=== PATIENT | male | born 1990 | race Caucasian/White ===

== ENCOUNTER 2018-08-23 02:19 | Observation (INO) | payer SELFPAY ==
[2018-08-23] VITALS (10 sets, daily range): BP systolic 132–165; BP diastolic 87–109; PULSE 80–105; RESP 13–20; TEMP 36.4–36.9; O2SAT 92–98; BMI 32.3
--- NOTE | 2018-08-23 02:21 | ED_ITS ---
HPI - General Adult General Chief complaint: Fall Stated complaint: fell downstairs, hip/lower back pain Time Seen by Provider: 08/23/18 02:21 Source: patient Mode of arrival: wheelchair Limitations: no limitations History of Present Illness HPI narrative: 28-year-old otherwise healthy male here for evaluation of lower back pain and bilateral hip pain. Patient states that he was walking up a flight of stairs after getting a little laundry per he tripped and fell backwards. States that he landed at the bottom approximately 10 stairs. Was able to ambulate afterwards but with quite a bit of difficulty. Did not hit his head. No loss of consciousness. Not on anticoagulation. Did drink some alcohol afterwards because of the discomfort. Arrived to the emergency department by private vehicle that had to be helped out of the vehicle because of the discomfort. Related Data Allergies Allergy/AdvReac Type Severity Reaction Status Date / Time No Known Drug Allergies Allergy Verified 08/23/18 03:36 Review of Systems Constitutional Denies fever(s), Denies headache(s) and Denies weakness ENT Ears, Nose, Mouth, and Throat: Denies vertigo, Denies dizziness, Denies headache(s) and Denies disequilibrium Cardiovascular Denies chest pain, Denies palpitations and Denies dyspnea Respiratory Denies cough and Denies dyspnea Gastrointestinal Gastrointestinal: Denies abdominal pain, Denies nausea and Denies vomiting Musculoskeletal Reports back pain, Denies radiating pain into limb and Denies tingling Comments: Bilateral hip pain Integumentary/Breasts Comments: Bruising to the left forearm Neurologic Denies abnormal speech, Denies behavioral changes, Denies vertigo, Denies dizziness, Denies headache(s), Denies radicular pain, Denies convulsions, Denies seizure-like activity, Denies tingling, Denies disequilibrium and Denies weakness Psychiatric Denies behavioral changes Endocrine Denies palpitations Hematologic/Lymphatic Denies easy bleeding and Denies easy bruising Allergic/Immunologic Denies urticaria [facility] Medical History Patient denies medical problems (Acute) Social History Smoking Status: Current every day smoker Social History Smoking Status: Current every day smoker Exam Initial Vital Signs Initial Vital Signs: Vital Signs Pulse Rate 105 H 08/23/18 02:19 Respiratory Rate 20 08/23/18 02:19 Blood Pressure 144/109 H 08/23/18 02:19 Pulse Oximetry 97 08/23/18 02:19 Const General: cooperative, No comfortable (Uncomfortable), well groomed, No acute distress and No ill appearing Orientation: alert, awake and oriented x3 HENMT Head: normal to inspection and normocephalic Nose: external nose normal Face and sinus: normal facial exam Mouth: oral mucosae normal Resp Effort & Inspection: normal respiratory effort Auscultation: clear to auscultation bilaterally Cardio Rate: tachycardic Rhythm: regular rhythm Pulses: radial pulses present GI Inspection: non-distended Palpation: soft, No firm and No tender Back/Spine/Pelvis Cervical Spine: No collar present, No loss of normal cervical lordosis, No cervical muscular tenderness, No pain with cervical ROM, No cervical spasm, No cervical spinal tenderness and No step off deformity Thoracic/Lumbar Spine: No thoracic spinal tenderness and lumbar spinal tendern ess Skin Other: Superficial abrasions to the left forearm. Abrasion to the right arm Neuro General: alert, awake and oriented x3 Cognition: normal cognition Speech: speech normal Motor: muscle tone normal throughout Sensory Exam: no sensory deficits noted Extrem General: normal to inspection and capillary refill normal Other: Full range of motion of major joints of left arm and right arm patient able to flex and extend at the hip the knees and the ankles bilaterally Psych Appearance: grossly normal and well kempt Scores GCS Guilherme coma scale eye opening: Spontaneous Guilherme coma scale verbal response: Orientated Guilherme coma scale motor response: Obey commands Guilhreme coma scale total score: 15 Nexus Score for C-Spine Focal Neurologic deficit present: No Midline spinal tenderness present: No Altered level of conciousness present: No (Not clinically intoxicated) Intoxication present: No Distracting Injury Present: No Nexus Criteria for C-spine: 0 Course Orders Ordered: ED Orders 08/23/18 02:25 XR lumbar spine 2-3V Stat XR pelvis 1-2V Stat 08/23/18 03:24 CT abdomen pelvis w con Stat 08/23/18 03:31 Basic Metabolic Panel Stat Complete Blood Count AUTO DIFF Stat Ethanol (ETOH) Stat 08/23/18 05:33 Consult to Orthopedic Surgery Routine Hydromorphone HCl (Dilaudid) 1 mg IV Q2HR MILLIE Nicotine (Nicoderm) 21 mg TOP NOW ONE Stop: 08/23/18 05:46 Ondansetron HCl (Zofran) 4 mg IV Q4HR PRN PRN Reason: Nausea And Vomiting Discontinued Medications Hydromorphone HCl (Dilaudid) 1 mg IM NOW ONE Stop: 08/23/18 02:26 Last Admin: 08/23/18 02:28 Dose: 1 mg Hydromorphone HCl (Dilaudid) 1 mg IV NOW ONE Stop: 08/23/18 03:25 Last Admin: 08/23/18 03:36 Dose: 1 mg Hydromorphone HCl (Dilaudid) 1 mg IV NOW ONE Stop: 08/23/18 05:27 Last Admin: 08/23/18 05:30 Dose: 1 mg Sodium Chloride (Normal Saline 0.9%) 1,000 mls @ 1,000 mls/hr IV BOLUS ONE Stop: 08/23/18 04:45 Last Infusion: 08/23/18 05:12 Dose: 0 mls/hr Admin: 08/23/18 04:10 Dose: 1,000 mls/hr Ketorolac Tromethamine (Toradol) 30 mg IM NOW ONE Stop: 08/23/18 02:26 Last Admin: 08/23/18 02:29 Dose: 30 mg Vital Signs - 8 hr 08/23/18 02:19 08/23/18 04:07 08/23/18 04:30 Pulse Rate 105 H 97 H 89 Respiratory Rate 20 20 Blood Pressure 144/109 H Blood Pressure [Right Arm] 146/99 H 146/87 H Pulse Oximetry 97 97 96 08/23/18 05:00 08/23/18 05:30 Pulse Rate 80 100 H Respiratory Rate 18 20 Blood Pressure Blood Pressure [Right Arm] 132/88 149/101 H Pulse Oximetry 92 94 Medical Decision Making Lab Data Lab results reviewed: Yes I reviewed the patient's lab results. Result diagrams: 08/23/18 03:31 08/23/18 03:31 Lab Results 08/23/18 08/23/18 Range/Units 03:31 03:31 WBC 12.0 H (4.5-11.0) X10^3/uL RBC 4.42 L (4.5-5.9) X10^6/uL Hgb 15.4 (13.5-17.5) g/dL Hct 43.8 (41-53) % MCV 99.1 (80-100) fL MCH 35.0 H (26-34) PG MCHC 35.3 (30-36) % RDW 12.2 (11.6-14.8) % Plt Count 132 L (150-400) X10^3/uL Neut % (Auto) 85.3 H (50-75) % Lymph % (Auto) 9.0 L (25-40) % [place] % (Auto) 5.0 (3-14) % Eos % (Auto) 0.3 L (2-4) % Baso % (Auto) 0.4 (0-2) % Neut # (Auto) 07775 H (9740-3732) /uL Lymph # (Auto) 1100 (7902-7514) /uL [place] # (Auto) 600 (0-900) /uL Eos # (Auto) 0 (0-450) /uL Baso # (Auto) 0 (0-100) /uL Sodium 140 (137-145) mmol/L Potassium 4.0 (3.4-5.1) mmol/L Chloride 107 (98-107) mmol/L Carbon Dioxide 22 (22-32) mmol/L BUN 11 (9-20) mg/dL Creatinine 0.70 (0.66-1.25) mg/dL Estimated GFR > 60.0 (>60) mL/min BUN/Creatinine Ratio 15.7 (6-22) Glucose 122 H (70-100) mg/dL Calcium 8.8 (8.4-10.2) mg/dL Ethyl Alcohol 110 mg/dL Imaging Data X-ray lumbar series: Radiologist's impression: Read by Radiology Acute anterior compression/teardrop fracture of L2 vertebral body. No conclusive evidence of posterior column her posterior element involvement. Slight retrolisthesis at L2-L3 X-ray pelvis: Radiologist's impression: Read by Renal radiology Unremarkable pelvis and bilateral hips CT abdomen pelvis: Radiologist's impression: Read by real Radiology Acute L2 burst fracture, with multiple fragments displaced anteriorly, and extends into posterior cortex, with mild retropulsion and borderline canal narrowing. Slight kyphotic angulation secondary to this. Mild enlargement of right psoas muscle on adjacent fat stranding consistent with at least a small amount of hemorrhage or edema. No intra peritoneal hemorrhage or solid organ injury. Hepatic steatosis MDM Narrative Medical decision making narrative: This appeared to be a mechanical fall. Patient admitted to drinking alcohol however he was clinically sober. He did not hit his head. No loss of consciousness. No external findings of any trauma. No neck pain. Full range of motion of the neck. I feel that we could hold on head CT and neck CT. Abrasions on bilateral upper extremities before range of motion of the major joints. Held on any x-rays. CT scan and x-rays show an L2 burst fracture. Patient is neurologically intact distal to this. He is unable to stand or move secondary to pain. Was given multiple doses of pain medication here in the emergency department. Discussed the case with Dr. Gore with Orthopedics who will admit the patient for further evaluation treatment. Discussed the admission with the patient. He expressed understanding and agreement. Discharge Plan Departure Patient Disposition: Admitted as Observation Clinical Impression: Abrasion of skin Closed compression fracture of L2 vertebra Qualifiers: Encounter type: initial encounter Qualified Code(s): S32.020A - Wedge compression fracture of second lumbar vertebra, initial encounter for closed fracture Fall Qualifiers: Encounter type: initial encounter Qualified Code(s): W19.XXXA - Unspecified fall, initial encounter Admit Date/Time: 08/23/18 05:39 Admit Provider: Faisal Gore
--- NOTE | 2018-08-23 02:25 | DI.RAD.S_ITS ---
PROCEDURE: XR LUMBAR SPINE 2-3V INDICATIONS: Fall down stairs lower back pain TECHNIQUE: During views of the lumbar spine were acquired. COMPARISON: [facility], CT, CT ABDOMEN PELVIS W CON, 08/23/2018, 3:49. FINDINGS: Bones: There is a fracture identified involving the L2 vertebral body with slight retropulsion of the posterior fragment. This fracture appears to represent an anterior compression fracture with a vertical component through the mid body. No additional fractures are evident. The remainder of the vertebral body heights are well-maintained. Bony alignment throughout the lumbar spine is well maintained. There is mild upward curvature of the lumbar spine on the frontal view. Soft tissues: Overlying bowel gas pattern is normal. No suspicious soft tissue calcifications. IMPRESSION: Complex L2 fracture. Slight retropulsion is present. Note: The preliminary [facility] report and the final report are concordant. Dictated by: Trey Mack M.D. on 08/23/2018 at 7:49 Approved by: Trey Mack M.D. on 08/23/2018 at 7:55
--- NOTE | 2018-08-23 02:25 | DI.RAD.S_ITS ---
PROCEDURE: XR PELVIS 1-2V INDICATIONS: Fall down stairs bilateral hip pain TECHNIQUE: 1 view(s) of the pelvis acquired. COMPARISON: [facility], CT, CT ABDOMEN PELVIS W CON, 08/23/2018, 3:49. FINDINGS: Bones: No displaced fractures or dislocations. No suspicious bony lesions. There may be mild degenerative changes of the bilateral hips. Soft tissues: Visualized bowel gas pattern is normal. No suspicious soft tissue calcifications. IMPRESSION: No displaced pelvic fractures are evident. Note: The preliminary [facility] report and the final report are concordant. Dictated by: Trey Mack M.D. on 08/23/2018 at 7:56 Approved by: Trey Mack M.D. on 08/23/2018 at 7:57
[2018-08-23] MEDS: HYDROMORPHONE 1 MG INJ IM (02:28)
[2018-08-23] MEDS: KETOROLAC 60 MG/2 ML VIAL 30 MG IM (02:29)
--- NOTE | 2018-08-23 03:24 | DI.CT.S_ITS ---
PROCEDURE: CT ABDOMEN PELVIS W CON INDICATIONS: Back pain after fall TECHNIQUE: After the administration of oral and intravenous contrast, 5 mm thick sections acquired from the diaphragms to the symphysis. 5 mm thick coronal and sagittal reformats were performed. For radiation dose reduction, the following was used: automated exposure control, adjustment of mA and/or kV according to patient size. COMPARISON: None. FINDINGS: Image quality: Excellent. ABDOMEN: Lung bases: Lung bases are clear. Heart size is normal. Solid organs: Liver is normal in size and is noted to be diffusely hypodense when compared to the spleen. Gallbladder is normal in size. Biliary system is non-dilated. Pancreas enhances normally. Spleen is normal in size and enhancement. No adrenal nodules. Kidneys are normal in size and enhancement, without hydronephrosis. Peritoneum and bowel: Stomach, small bowel, and colon loops are normal in caliber and wall thickness. No free fluid or air. No loculated fluid collections are evident. The appendix is well-visualized and normal. Incidental note is made of enlargement of the right iliopsoas muscle with surrounding soft tissue edema. No intramuscular fluid collection is appreciated. Nodes and vessels: No retroperitoneal or mesenteric adenopathy. Aorta and inferior vena cava are normal in caliber. Bones: There is a complex fracture identified involving the L2 vertebral body with anterior wedging and approximately 40% anterior vertical height loss. Mild comminution involving the anterior aspect of the vertebral body is present. There is a vertical component extending through the anterior to mid aspect of the vertebral body. There is slight retropulsion by approximately 1-2 mm on the posterior superior endplate. No fracture lines are seen extending into the pedicles or other posterior elements. No additional fractures are identified. PELVIS: Genitourinary: Bladder wall thickness is normal. The prostate is not enlarged. Miscellaneous: No inguinal hernias or adenopathy. No free fluid or loculated fluid collection is appreciated. Bones: No suspicious bony lesions. No acute pelvic fractures are evident. IMPRESSION: 1. Complex fracture of the L2 vertebral body without involvement of the posterior elements. There is minimal retropulsion. 2. Enlarged right psoas muscle probably is reactive to the L2 fracture, suggesting intramuscular hematoma/tearing. 3. Hepatic steatosis. 4. No evidence of solid organ laceration or contusion of the abdomen. Note: The preliminary [facility] report and the final report are concordant. Dictated by: Trey Mack M.D. on 08/23/2018 at 8:15 Approved by: Trey Mack M.D. on 08/23/2018 at 8:19
[2018-08-23] MEDS: HYDROMORPHONE 1 MG INJ IV ×4 (03:36→08:36)
[2018-08-23 03:42] LABS: Add Manual Diff / Slide Review NO; Basophils Absolute Auto 0 /uL (0-100); Basophils Percent Auto 0.4 % (0-2); Eosinophils Absolute Auto 0 /uL (0-450); Eosinophils Percent Auto 0.3 % (2-4); Hematocrit 43.8 % (41-53); Hemoglobin 15.4 g/dL (13.5-17.5); Lymphocytes Absolute Auto 1100 /uL (1100-4500); Mean Corpuscular HGB Conc 35.3 % (30-36); Mean Corpuscular Volume 99.1 fL (80-100); Monocytes Absolute Auto 600 /uL (0-900); Neutrophils Absolute Auto 10300 /uL (1500-7000); Neutrophils Percent Auto 85.3 % (50-75); Platelet Count 132 X10^3/uL (150-400); Red Blood Cell Count 4.42 X10^6/uL (4.5-5.9); Red Cell Distribution Width 12.2 % (11.6-14.8)
[2018-08-23 03:48] LABS: BUN Creatinine Ratio 15.7 (6-22); Blood Urea Nitrogen 11 mg/dL (9-20); Calcium 8.8 mg/dL (8.4-10.2); Carbon Dioxide 22 mmol/L (22-32); Chloride 107 mmol/L (98-107); Estimated Glomerular Filt Rate > 60.0 mL/min (>60); Ethanol (ETOH) 110 mg/dL; Glucose 122 mg/dL (70-100); HEMOLYSIS < 15 (0-50); Sodium 140 mmol/L (137-145)
[2018-08-23] MEDS: SODIUM CHLORIDE 0.9% 1,000 ML 1000 ML IV (04:10)
--- NOTE | 2018-08-23 06:00 | DI.MRI.S_ITS ---
PROCEDURE: MR LUMBAR SPINE WO CON INDICATIONS: L2 is fracture rule out posterior ligament injury TECHNIQUE: Noncontrast sagittal T1 spin echo and T2 fast echo, sagittal STIR, axial T1 and T2 fast spin echo through the lumbar spine. In cases with scoliosis, additional coronal T2 fast spin echo may be performed. COMPARISON: None. FINDINGS: Image quality: Excellent. Spinal Cord: Conus medullaris terminates at the L1 level. Visualized cord demonstrates normal signal and size. Paraspinous Soft Tissues: No paravertebral masses. Mild edema involving the bilateral iliopsoas muscles is evident, suggesting intramuscular trauma. No loculated or drainable fluid collections are evident. Bones: There is a vertically oriented fracture identified involving the anterior margin of the L2 vertebral body with mild comminution. Mild retropulsion is evident along the posterior superior endplate by approximately 3 mm. The remainder of the vertebral body heights are well-maintained. No additional fractures are identified. No suspicious osseous lesions are evident. No prominent disc protrusions or extrusions are evident. There is a small diffuse disc bulge with an associated annular fissure at L5-S1. There is mild central canal stenosis at the L2 level related to mild retropulsion of the fracture fragments of the posterior L2 vertebral body in combination with epidural lipomatosis and a congenitally small canal. No neural foraminal narrowing is evident at this level. Otherwise, the central canal is widely patent. There is mild to moderate bilateral neural foraminal narrowing at the level of L4-5 and L5-S1, largely related to mild diffuse disc bulge and facet arthrosis. IMPRESSION: 1. Comminuted fracture involving the L2 vertebral body with mild posterior retropulsion and associated mild central canal stenosis as described. 2. No abnormal signal of the cord. 3. No additional fractures. 4. No disc protrusions or extrusions. 5. Mild to moderate neural foraminal narrowing as described. 6. Small central annular fissure at L5-S1 with an associated diffuse disc bulge is likely chronic. 7. Intramuscular edema of the bilateral psoas muscles is suggestive of muscle strain and/partial tearing. Dictated by: Trey Mack M.D. on 08/23/2018 at 10:52 Approved by: Trey Mack M.D. on 08/23/2018 at 11:01
[2018-08-23] MEDS: NICOTINE 21 MG PATCH TOP ×2 (06:22→16:06)
[2018-08-23] MEDS: SODIUM CHLORIDE 0.9% 1,000 ML 125 ML IV (06:31)
--- NOTE | 2018-08-23 06:52 | PC.NURSE ---
Admitted to room 225, diagnosed with L2 fractured, very restless & moving all over his bed. Rated pain level 10/10, medicated with 1 mg. IVP Dilaudid. Ice pack applied to his lower back. Oriented to his room showed how to used his call light, informed Pt. he will be NPO until Ortho MD will see him this morning. Will report to day RN.
--- NOTE | 2018-08-23 07:07 | PC.NURSE ---
Pt. reports the pain med. you gave me is not working. Dr. Groe notified via answering service awaiting call back.
--- NOTE | 2018-08-23 07:25 | PC.NURSE ---
Dr. Gore called back no new order received & will see pt. this morning.
--- NOTE | 2018-08-23 09:44 | PM.HP.1 ---
History of Present Illness Date Patient Seen: 08/23/18 Time Patient Seen: 09:30 Chief complaint: fell downstairs, hip/lower back pain Narrative: The patient is a 28-year-old man with a history of anxiety but otherwise generally healthy. He was attempting to take laundry up stairs when his flip flop caught on the stair and he fell falling back down the stairs. He had intense back pain and was taken to [facility] Emergency Room where a CT scan of the chest and abdomen revealed an L2 burst fracture. No other injuries have been found on his workup. Patient History Medical History (Updated 08/23/18 @ 09:46 by Faisal Gore MD) Anxiety (Acute) Patient denies medical problems (Acute) Social History household members: significant other and family Smoking Status: Current every day smoker Family & Social History Social History: household members significant other,family Prior Living Arrangements Apartment/Condo Safety & Behavioral: Feels Safe in Current Yes Environment Been Physically Hurt or No Threatened By a Person Suicidal Ideation Description None Suicide Plan Description No Plan Tobacco & Substance use: Smoking Status Current every day smoker alcohol intake frequency 0-2 drinks per day Substance Use Type marijuana Meds Home Medications Medication Instructions Recorded Confirmed Type No Known Home Medications 08/23/18 08/23/18 History Allergies Allergy/AdvReac Type Severity Reaction Status Date / Time No Known Drug Allergies Allergy Verified 08/23/18 03:36 Review of Systems Review of Systems Review of systems is positive for the chronic use of marijuana to treat his anxiety. He is also a smoker. He denies any other recent symptoms. All systems reviewed & are unremarkable except as noted in HPI and below Exam Vital Signs (past 8 hours): - 08/23/18 02:19 08/23/18 04:07 08/23/18 04:30 Temperature Pulse Rate 105 H 97 H 89 Respiratory Rate 20 20 Blood Pressure 144/109 H Blood Pressure [Right Arm] 146/99 H 146/87 H Pulse Oximetry 97 97 96 08/23/18 05:00 08/23/18 05:30 08/23/18 05:48 Temperature 98 F Pulse Rate 80 100 H 97 H Respiratory Rate 18 20 17 Blood Pressure 156/99 H Blood Pressure [Right Arm] 132/88 149/101 H Pulse Oximetry 92 94 96 Oxygen Delivery Method Room Air Narrative Exam Narrative: Physical examination he is a moderately overweight young man lying in his hospital bed clearly in significant discomfort. He is writhing in discomfort. HEENT examination is normocephalic atraumatic. Neck is nontender. Upper spine is nontender. He is tender in the lower spine with no palpable step-offs. Skeletal survey is nontender anywhere else including the entirety of the appendicular skeleton and pelvis. Chest is notable for widespread wheezes. Cardiac exam is regular rate and rhythm. Abdomen is soft mildly distended hypoactive bowel sounds but no tenderness. The patient has been able to spontaneously urinate in a controlled fashion since arrival at the hospital so rectal examination is deferred Objective Labs Result Diagrams: 08/23/18 03:31 08/23/18 03:31 Labs: Laboratory Results - last 24 hr 08/23/18 08/23/18 03:31 03:31 WBC 12.0 H RBC 4.42 L Hgb 15.4 Hct 43.8 MCV 99.1 MCH 35.0 H MCHC 35.3 RDW 12.2 Plt Count 132 L Neut % (Auto) 85.3 H Lymph % (Auto) 9.0 L [place] % (Auto) 5.0 Eos % (Auto) 0.3 L Baso % (Auto) 0.4 Neut # (Auto) 03076 H Lymph # (Auto) 1100 [place] # (Auto) 600 Eos # (Auto) 0 Baso # (Auto) 0 Sodium 140 Potassium 4.0 Chloride 107 Carbon Dioxide 22 BUN 11 Creatinine 0.70 Estimated GFR > 60.0 BUN/Creatinine Ratio 15.7 Glucose 122 H Calcium 8.8 Ethyl Alcohol 110 Assessment & Plan Assessment & Plan narrative: The patient has an L2 burst fracture with no neurologic deficit currently. He is having extreme pain control difficulty. I believe this is partially compounded by his baseline anxiety disorder. He will be maintained on bedrest with log rolls only for the time being. An MRI will be obtained to evaluate for posterior ligamentous injury. If that is present he will undergo surgical fixation by 1 of my spine surgery colleagues. If the MRI shows his posterior ligament structures are intact he will be treated with a TLSO. We will initiate pain control with acetaminophen, oxycodone and Flexeril for muscle spasms. Intravenous morphine will be available for breakthrough pain. In addition we will give him as needed Ativan for anxiety. At this juncture he will be allowed to have a diet as tolerated, as any surgery is not contemplated for today. DVT prophylaxis will be with sequential compression devices. Time Spent With Patient Time with patient: 15-24 minutes Quality VTE Deep Vein Thrombosis/Pulmonary Embolism Present on Admission: No
[2018-08-23] MEDS: OXYCODONE IR 10 MG TABLET PO ×2 (09:53→14:09)
[2018-08-23] MEDS: ACETAMINOPHEN 325 MG TABLET 975 MG PO ×3 (09:53→20:36)
[2018-08-23] MEDS: LORazepam 0.5 MG TABLET PO (09:53)
[2018-08-23] MEDS: CYCLOBENZAPRINE 10 MG TABLET PO ×2 (09:53→18:01)
--- NOTE | 2018-08-23 10:08 | CM.DANOTE ---
DCP:Case received, EMR reviewed and met with patient. Introduced self and role. Was able to obtain some information from patient regarding his history. DCP template assessment completed with information currently available. Patient is a 28 year old male who admitted early this morning to the care of the hospitalist team. PCP: none Payer: No insurance. Patient came to the hospital via family vehicle secondary to back pain due to a ground level fall. He had been doing laundry, tripped and fell backwards on the stairs. He had been able to get up, but had significant back pain. Patient holds diagnosis of L-2 burst fracture. Plan is for patient to have an MRI today to see if he will need surgery. Patient stated that he had some alcohol secondary to fall for pain. He has history of anxiety, in which he uses marijuana to help with this. Met briefly with patient. He was restless and in pain. Nurse, Marifer, had just given him some pain medication. Was unable to engage in a lengthy conversation with patient secondary to restlessness and pain, but confirmed that he lives alone. No other family present in room, but notes indicate he has family, significant other, none listed. He has no health insurance, as well as no primary care provider. Sent a note to admission change group regarding insurance situation. P: DCP to continue to follow. At this time, patient is on bed rest. Anticipate that patient will be here for another couple of days, but unclear if he will have surgery at this time. He may also eventually work with physical therapy when he is able. Addie Woody RN/Needle Molder
[2018-08-23] MEDS: MORPHINE 2 MG/ML INJ IV ×4 (10:37→20:39)
[2018-08-23] MEDS: LORazepam 2 MG/ML INJ 0.5 MG IV ×2 (10:37→17:29)
[2018-08-23] MEDS: LACTATED RINGERS 1,000 ML 125 ML IV (10:43)
--- NOTE | 2018-08-23 12:32 | RT ---
Fair IS effort; pt is s/p fall down stairs, has intense spasm-like back pain (comes in waves). Currently refused to cough due to back pain. Uses IS 10x with fair effort. Nurse Maki Vaz aware of back pain and fair I.S. and cough efforts.
--- NOTE | 2018-08-23 16:39 | RT ---
Reviewed and conducted I.S. therapy with Efren again. His LBP seems to be better controlled. Sebastián actually coughed on command (albeit weak and ineffective) Lung sounds remain coarse with musical rhonchi and wheezes. Importance of IS reinforced and I told pt he has the perfect storm (hvy smkr & pain with any deep breath and cough) to develop pulm complications if he is not aggressive performing pulmonary toilet. SO Romelia in room also to hear discussion. Pt understands and verbalizes.
[2018-08-23] MEDS: DOCUSATE 100 MG CAPSULE PO (20:36)
[2018-08-24] MEDS: OXYCODONE IR 10 MG TABLET PO ×3 (02:06→12:44)
[2018-08-24 04:50] VITALS: BP 159/104; PULSE 85; RESP 17; TEMP 37.1; O2SAT 97
[2018-08-24] MEDS: MORPHINE 2 MG/ML INJ IV ×2 (04:52→09:33)
--- NOTE | 2018-08-24 05:06 | PC.NURSE ---
Pt A and O x 4, VSS, able to sleep but rates pain 8-9/10. Good relief from 10 mg oxycodone po, alternating with 2 mg MS IVP.
[2018-08-24 05:28] LABS: Hematocrit 40.8 % (41-53); Hemoglobin 14.5 g/dL (13.5-17.5); Mean Corpuscular HGB Conc 35.6 % (30-36); Mean Corpuscular Volume 98.3 fL (80-100); Platelet Count 100 X10^3/uL (150-400); Red Blood Cell Count 4.15 X10^6/uL (4.5-5.9); Red Cell Distribution Width 12.4 % (11.6-14.8)
[2018-08-24] MEDS: CYCLOBENZAPRINE 10 MG TABLET PO (07:09)
[2018-08-24 08:00] VITALS: BP 153/105; PULSE 90; RESP 16; TEMP 37.1; O2SAT 95
--- NOTE | 2018-08-24 08:31 | CM.DPC ---
Addendum entered by Leia Kim LPN 08/24/18 13:39: Spoke again with JULY Portillo. He noted that he had returned to put in a d/c order for pt. He reported that pt had been up, done very well with the TLSO, was able to do stairs and was very eager for d/c. TRE Caicedo notes that pt went home with a friend at 1302. Per JULY Portillo he is expected to followup with the ortho clinic in a week or so. ACG did see pt to offer help with [facility] but he declined her assist, stating he preferred to follow up later after he was home. Original Note: DCP: continued: Case received and discussed with ortho JULY Portillo. Pt with L2 burst fracture: TLSO is ordered. PT and OT will work with pt. JULY Portillo reports that pt does live in a second floor apt but that he has friends who can assist him. Will be following up re this and assisting prn with the d/c needs. Pt with no insurance. Review of COL NOTES show that Admission counselor is planning to see pt today to assess for eligibility for [place] [employer] [facility] [employer] and give [facility] application info. P: discuss in Team Rounds and follow accordingly.
--- NOTE | 2018-08-24 08:43 | PM.PN.1 ---
Subjective Date Patient Seen: 08/24/18 Time Patient Seen: 08:43 Interval history: Hospital day 2 with L2 vertebrae burst fracture after fall down stairs. Patient has been on bed rest and pain management. Patient does have anxiety disorder which is being treated with Ativan. He usually treat anxiety at home with marijuana. He has been receiving oxycodone, morphine IV push and Flexeril. He did have a lumbar spine MRI done yesterday which noted L2 comminuted fracture with mild posterior retropulsion and mild central stenosis. He has had TLSO brace ordered but this has not been fitted. He is to begin physical therapy once the TLSO brace is fitted and should be up only with brace on. He denies any leg symptoms. Patient is unemployed and has no insurance and lives alone in a 2nd story apartment. He states he does have some friends and family in the area that would help him. Exam Vital Signs (past 8 hours): - 08/24/18 04:50 Temperature 98.8 F Pulse Rate 85 Respiratory Rate 17 Blood Pressure 159/104 H Pulse Oximetry 97 Oxygen Delivery Method Room Air Oxygen Flow Rate 0 Narrative Exam Narrative: Alert, oriented in no acute distress lying in bed. Legs. No calf pain or swelling. Pulses symmetrical. Good sensation to touch to lower legs. Good strength on foot dorsiflexion plantar flexion. Objective Labs Result Diagrams: 08/24/18 04:55 08/23/18 03:31 Labs: Laboratory Results - last 24 hr 08/24/18 04:55 WBC 7.0 RBC 4.15 L Hgb 14.5 Hct 40.8 L MCV 98.3 MCH 35.0 H MCHC 35.6 RDW 12.4 Plt Count 100 L Assessment & Plan Assessment & Plan narrative: Plan: Patient will be fitted for TLSO brace today. He will then begin PT/OT with brace on and should be up out of bed only with brace on. Will observe for pain management. Will plan to observe patient today for pain control and function and plan discharge home next 1-2 days if stable once the care management has worked with him. Quality VTE Deep Vein Thrombosis/Pulmonary Embolism Present on Admission: No
[2018-08-24] MEDS: NICOTINE 21 MG PATCH TOP (09:32)
[2018-08-24] MEDS: ACETAMINOPHEN 325 MG TABLET 975 MG PO (09:32)
[2018-08-24] MEDS: SODIUM CHLORIDE 0.9% FLUSH 10 ML IV (09:33)
[2018-08-24] MEDS: DOCUSATE 100 MG CAPSULE PO (09:33)
--- NOTE | 2018-08-24 10:11 | OT.IP.EVAL ---
Past Medical History (Last Updated 08/23/18 @ 09:46 by Faisal Gore MD) Anxiety (Acute) Patient denies medical problems (Acute) Occupational Therapy Inpatient Evaluation/Re-Eval M1 PT/OT-IP Prior Functional Status Start: 08/24/18 15:04 Freq: NEEDED Status: Active Protocol: Document 08/24/18 10:11 HAIDER (Rec: 08/24/18 15:18 [facility] [id number]) Medical Review Prior Functional Status Medical History Reviewed Yes Diet/Fluid Consistency Regular Communication WNL Mobility and Gait Pt states he is independent without AD, denies any other falls than this one on the stairs. Activities of Daily Living and IADL's Pt states he is independent with all self care, IADLS and cares for his 3 children ages 7, 6, 4 yrs. He owns a truck but prefers to walk due to high cost of gas. Prior Functional Level (Other details) Pt unemployed at present. Social History Household Members children Living Arrangements Apartment/Condo Number of Floors (Floors) One Floor Number of Stairs To Enter/Railing? 15 YAAKOV with bilat rails Home Environment High Toilet Tub/Shower Employment Status Unemployed Additional Social History Comment Pt has supportive neighbors who can assist with child welfare worker and IADLS PRN. Pt states he can borrow FWW and shower seat from neighbor. M2 OT-IP Current Condition Start: 08/24/18 15:04 Freq: Status: Active Protocol: Document 08/24/18 10:11 HAIDER (Rec: 08/24/18 15:18 [facility] [id number]) Occupational Therapy Current Condition Current Condition Evaluation Date 08/24/18 Treatment Diagnosis decr'd self care, functional mobility s/p L2 burst fx after fall on stairs Diagnosis Onset Date 08/23/18 Post Operative Precautions Other Precautions TLSO brace on when up M3 OT- IP Subjective and Pain Start: 08/24/18 15:04 Freq: Status: Active Protocol: Document 08/24/18 10:11 PJTatianna (Rec: 08/24/18 15:18 [facility] [id number]) OT- Subjective Occupational Therapy Visit Type Type Initial Evaluation Visit Start Time 09:29 Visit Stop Time 10:11 Total Visit Minutes 42 Occupational Therapy Visit Comments Patient Comments I just want to go home. Patient/Caregiver Goals To return to being independent with all daily tasks OT Pain Assessment Pain When Pain Assessed After Treatment Pain Present Pain Present Pain Reported Location Lower Back Intensity 4 Scale Used pain improved from 5 with mobility out of bed Description Aching Acute M4 OT- IP ADL's Start: 08/24/18 15:04 Freq: Status: Active Protocol: Document 08/24/18 10:11 PJM (Rec: 08/24/18 15:18 PJM [id number]) OT JUH-Rrsi-Rshttsd General Evaluation Self-Feeding Ability Independent OT ADL-Grooming General Evaluation Grooming Ability Independent Areas Needing Assistance Combing/Brushing Hair Face Washing Comments OT Grooming Comments provided education re: body mechanics OT ADL-Oral Care General Eval Oral Care Ability Independent Areas of Assistance Brushing Teeth Devices Oral Care Devices Toothbrush Comments Oral Care Comments provided education re: body mechanics OT ADL-Dressing General Eval Upper Body Dressing Ability Independent Lower Body Dressing Ability Standby Assistance Assistive Devices Dressing Assistive Devices Aluminum Boat Assembly Supervisor Comments OT Dressing Comments Provided education re: lower body dressing with redrying machine operator and body mechanics for lumbar spine precautions. Pt states his children can assist with socks and he wears slip on shoes. He declines sock aid. Aluminum Boat Assembly Supervisor provided. OT ADL-Toileting General Evaluation Toileting Ability Independent Comments OT Toileting Comments provided education re: body mechanics OT ADL-Bathing Devices Bathing Equipment Long Handled Sponge or [place] Shower Chair without Arms Comments OT Bathing Comments Pt declines to shower here, long bath sponge provided, provided education re: body mechanics. He will borrow shower chair from neighbor.He will have friend assist with donning and doffing brace once seated on shower chair. M5 OT- IP IADL's Start: 08/24/18 15:04 Freq: Status: Active Protocol: Document 08/24/18 10:11 PJTatianna (Rec: 08/24/18 15:18 PJM [id number]) OT-Instrumental Activities of Daily Living Deficits IADL Deficits Identified Deficits Home Safety Awareness Awareness of Need for Assistance at Home Good Awareness Ability to Problem Solve Emergency Able to Problem Solve Situations Medication Management Medication Management No Deficits Identified Money Management Money Management No Deficits Identified Meal Preparation Meal Preparation Caregiver Provides Assist Meal Preparation Comments neighbors, friends to linh PRN Manager Commission Manager Commission Caregiver Provides Assist Manager Commission Comments neighbors, friends to linh PRN Driving Driving Caregiver Provides Assist Driving Comments neighbors, friends to linh PRN M6 OT- IP Functional Cognition Start: 08/24/18 15:04 Freq: Status: Active Protocol: Document 08/24/18 10:11 HAIDER (Rec: 08/24/18 15:18 [facility] [id number]) Cognitive Factors Limiting Selfcare Function Cognitive Ability Level of Alertness Alert Patient Orientation Name Age Birthday Month Date Year Day of Week Place Situation Attention Span Ability Capable of Focused Attention Capable of Sustained Attention Ability to Follow Commands Able to Follow One Step Commands Able to Follow Multi-Step Commands Memory Description No Deficits Noted Safety Awareness No Deficits Noted Problem Solving Ability No deficits Noted Cognitive Comments Cognitive Assessment Comments Pt verbalizes and demonstrates understanding of lumbar spine precautions and written instructions provided. OT- Vision and Hearing OT- Hearing Assessment OT- Hearing Assessment WFL OT- Vision Assessment Visual Acuity WFL M7 OT- IP Mobility and Balance Start: 08/24/18 15:04 Freq: Status: Active Protocol: Document 08/24/18 10:11 HAIDER (Rec: 08/24/18 15:18 [facility] [id number]) OT- Bed Mobility Assessment Rolling Type of Rolling Roll to Right Level of Assistance Independent OT-Transfer Assessment Sit to and From Stand Sit to and from Stand Independent Transfers Transfer Ability Independent Technique Transfer Destination Chair Toilet Transfer Technique Stand Step Pivot Devices Transfer Assistive Devices Gait Belt Front Wheeled Walker OT- Gait Assessment Gait Gait Assistance Required: Independent Distance (Feet) 200 Assistive Devices Assistive Device Gait Belt Front Wheeled Walker OT- Balance Assessment Sitting Balance and Reactions Static Sitting Balance Ability Good Dynamic Sitting Balance Ability Good Standing Balance and Reactions Static Standing Balance Ability Good Dynamic Standing Balance Ability Good M8 OT- IP Objective Assessments Start: 08/24/18 15:04 Freq: Status: Active Protocol: Document 08/24/18 10:11 HAIDER (Rec: 08/24/18 15:18 [facility] [id number]) OT Gross Range of Motion Upper Extremity Range of Motion Assessment Within Functional Limits OT Strength Upper Extremity Strength Assessment Within Functional Limits OT- Coordination Assessment Comments Coordination Comments BUE WNL OT-Muscle Tone Assessment Muscle Tone WNL Yes OT Sensation Assessment Comments Summary Comments BUE WNL Edema Edema Absent M9 OT- IP Assessment and Plan Start: 08/24/18 15:04 Freq: Status: Active Protocol: Document 08/24/18 10:11 HAIDER (Rec: 08/24/18 15:18 PJM [id number]) OT Summary Assessment and Plan Potential Rehabilitation Potential Excellent Analytic Complexity at Evaluation Low Summary OT Impairments Pain Progress Towards Goals Safe For Discharge Assessment Summary Low complexity OT assessment completed on this 28 yr old pt with L2 burst fx after fall down stairs now in new TLSO brace. All OT education completed in one visit re: lumbar spine precautions and adapted ADL techniques as described above. Pt plans to d/c home today with assist from friends/neighbors PRN. Frequency of Treatment Frequency Of Treatment Discharge Discharge Recommendations OT Discharge Recommendations Home with Assistance Home Equipment Needs redrying machine operator and long bath sponge provided, pt will borrow shower seat and FWW
--- NOTE | 2018-08-24 10:30 | PT.IIE ---
Medical History (Last Updated 08/23/18 @ 09:46 by Faisal Gore MD) Anxiety (Acute) Patient denies medical problems (Acute) Physical Therapy Inpatient Evaluation/Re-Eval M1 PT/OT-IP Prior Functional Status Start: 08/24/18 08:29 Freq: NEEDED Status: Discharge Protocol: Document 08/24/18 10:30 RS (Rec: 08/24/18 14:30 RS [id number]) Medical Review Prior Functional Status Medical History Reviewed Yes Diet/Fluid Consistency Regular Communication no known deficits Mobility and Gait ind without AD, denies any other falls than this one on the stairs Activities of Daily Living and IADL's denies needing any assist for self-care Social History Household Members children Living Arrangements Apartment/Condo Number of Floors (Floors) One Floor Number of Stairs To Enter/Railing? 14 YAAKOV with bilat rails Home Environment High Toilet Employment Status Unemployed Additional Social History Comment Lives with 3 children who are currently being cared for by a neighbor/friend (who seems to be quite close to the family, kids call her mom), has another neighbor who can provide any level of assistance as needed M2 PT-IP Current Condition Start: 08/24/18 08:29 Freq: NEEDED Status: Discharge Protocol: Document 08/24/18 10:30 RS (Rec: 08/24/18 14:30 RS [id number]) Physical Therapy Current Condition Current Condition Evaluation Date 08/24/18 Treatment Diagnosis L2 burst fracture Onset Date 08/23/18 Precautions Lumbar Precautions Log Roll No Twisting Limit Bending Brace TLSO on at all times when OOB M3 PT-IP Subjective Start: 08/24/18 08:29 Freq: NEEDED Status: Discharge Protocol: Document 08/24/18 10:30 RS (Rec: 08/24/18 14:30 RS [id number]) Subjective Physical Therapy Visit Type Type Initial Evaluation Visit Start Time 09:00 Visit Stop Time 10:30 Total Visit Minutes 90 Physical Therapy Visit Comments Patient Comments Pt reports he's ready to go home today and that he has tons of support at home. Patient Goals go home today Therapy Pain Assessment Pain When Pain Assessed During Mobility Pain Present Pain Present Pain Reported M4 PT-IP Mobility and Gait Start: 08/24/18 08:29 Freq: NEEDED Status: Discharge Protocol: Document 08/24/18 10:30 RS (Rec: 08/24/18 14:30 RS [id number]) PT-Bed Mobility Assessment Rolling Type of Rolling Log Rolling Level of Assist Independent Supine to Sit Supine to Sit Independent Scooting Scooting to Edge of Bed Independent PT-Transfer Assessment Sit to and From Stand Sit to and from Stand Independent Equipment Transfer Assistive Device Front Wheeled Walker Orthotic/Prosthetic Devices or Brace: Yes Transfers Transfer Destination Bed Chair Toilet Transfer Technique walked Transfer Ability Level of Assist Independent Comments Mobility Comments Pt is slow with bed mobility but able to complete without additional physical assist. Pt demo's good log rolling technique. Pt able to tolerate TLSO donning in sitting, so this technique was encouraged for home instead of donning in supine. Pt able to then perform sit<>stand with FWW from various surfaces at a mod ind level. Gait Assessment Gait Gait Assistance Required: Independent Distance (Feet) 200 Assistive Devices Assistive Device Front Wheeled Walker Orthotic/Prosthetic Devices or Brace: Yes Gait Deviations General Gait Pattern Within Normal Limits Comments Gait Comments Pt BLE initially looking a little weak but gait quality looked better and better the longer he was up moving and once the FWW was elevated slightly. Pt reports feeling better in standing than any other position. Stair Climbing Assessment Evaluation Level of Assist On Stairs Standby Assistance Devices Stair Climbing Assistive Devices Left Railing Right Railing Technique/Endurance Stair Climbing Direction Ascend and Descend Stair Climbing Technique Step Over Step Step to Step Number of Steps Climbed 15 Query Text: Stair Climbing Set # Repetitions (reps) 1 Comments Stair Climbing Comments SBA required to manage FWW while pt uses bilat rails. PT-Balance Assessment Sitting Balance and Reactions Static Sitting Balance Ability Normal Dynamic Sitting Balance Ability Good Standing Balance and Reactions Static Standing Balance Ability Good Dynamic Standing Balance Ability Good Device Used FWW and TLSO M5 PT-IP Objective Assessments Start: 08/24/18 08:29 Freq: NEEDED Status: Discharge Protocol: Document 08/24/18 10:30 RS (Rec: 08/24/18 14:30 RS [id number]) Orientation Orientation/Cognition Level of Alertness Alert Orientation Name Age Birthday Month Date Year Day of Week Place Situation Language Function Ability No Deficits Noted Safety Awareness Understands Safety Issues Memory Description No Deficits Noted Gross Range of Motion Upper Extremity ROM Assessment Within Functional Limits Lower Extremity ROM Assessment Within Functional Limits Strength Comments Strength Comments strength not formally tested, from a functional standpoint BLE are estimated to be ~4+/5 M6 PT-IP Treatment Start: 08/24/18 08:29 Freq: NEEDED Status: Discharge Protocol: Document 08/24/18 10:30 RS (Rec: 08/24/18 14:30 RS [id number]) Physical Therapy Treatment Education Education Provided Safety Brace Education [place] Patient Equipment Issued Equipment Type and Company TLSO from [employer] as ordered by ortho M7 PT-IP Assessment and Plan Start: 08/24/18 08:29 Freq: NEEDED Status: Discharge Protocol: Document 08/24/18 10:30 RS (Rec: 08/24/18 14:30 RS [id number]) PT Summary Assessment and Plan Potential Rehabilitation Potential Excellent Status of Condition at Evaluation Stable Summary Impairments Pain Progress Towards Goals Safe For Discharge Assessment Summary Pt presents with low back pain after an L2 burst fracture that is causing overall impaired mobility. Pt requires use of a TLSO when OOB. When wearing the TLSO and using a FWW pt is able to mobilize at a mod ind level. He is slow but steady and reports pain is manageable. Pt is safe to discharge home with intermittent assist from neighbors/friends when medically ready. Pt will eventually require OPPT, but does not need any immediate f/ u therapy services. Pt is going to borrow a FWW from a neighbor. Pt has no other acute therapy goals/needs, therefore acute PT will sign off. Frequency of Treatment Frequency Of Treatment Discharge Recommendations To Nursing Amount of Assist Needed Independent Discharge Recommendations PT Discharge Recommendations Home with Assistance Outpatient PT Equipment Needed for Home Before will borrow a FWW from a Discharge neighbor
--- NOTE | 2018-08-24 11:57 | P.DS_ITS ---
History of Present Illness Date Patient Seen: 08/24/18 Time Patient Seen: 11:55 Chief complaint: fell downstairs, hip/lower back pain Narrative: Hospital day 2 with L2 burst fracture. Patient has remained stable. He did receive a TLSO brace this morning and states that it feels good. He has been up out of bed and ambulating with the brace on with back pain improved. Ambulating with walker. He did do well with PT /OT. He would like to go home. Discharge Providers Date of admission: 08/23/18 05:39 Discharge Date: 08/24/18 Consults: 08/23/18 09:36 Consult to Discharge Planning Routine Comment: Consult to Respiratory Therapy Evaluate & Treat Comment: Smoker with wheezing Physician Instructions: Evaluate and treat 08/24/18 08:48 Consult to Physical Therapy Evaluate & Treat Comment: L2 burst fracture, up only with TLSO brace. Physician Instructions: Evaluate and Treat 08/24/18 08:49 Consult to Occupational Therapy Evaluate & Treat Comment: L2 burst fracture, up only with TLSO brace Physician Instructions: Evaluate and treat Discharge provider: Ari Portillo PA-C Summary Discharge Diagnosis: L2 vertebrae burst fracture Hospital Course: patient brought in the hospital on 08/23/2018 after a fall down stairs causing L2 burst fracture. He was seen at [facility] emergency room initially and then admitted under Dr. Gore orthopedist for care. He remained stable neurologically. He received TLSO brace on hospital day 2 and was able to be up and ambulating with decreased pain. Patient ready for discharge home on hospital day 2. Status at Discharge Cognitive/behavioral status at discharge: oriented Functional status at discharge: uses cane/walker Overall status at discharge: patient is progressing back to baseline Time Spent with Patient Less than 30 minutes Exam Vital Signs (past 8 hours): - 08/24/18 04:50 08/24/18 08:00 Temperature 98.8 F 98.7 F Pulse Rate 85 90 Respiratory Rate 17 16 Blood Pressure 159/104 H 153/105 H Pulse Oximetry 97 95 Oxygen Delivery Method Room Air Oxygen Flow Rate 0 Narrative Exam Narrative: Alert, oriented sitting in chair in no acute distress. Back. A TLSO brace in place. Objective Labs Result Diagrams: 08/24/18 04:55 08/23/18 03:31 Labs: Laboratory Results - last 24 hr 08/24/18 04:55 WBC 7.0 RBC 4.15 L Hgb 14.5 Hct 40.8 L MCV 98.3 MCH 35.0 H MCHC 35.6 RDW 12.4 Plt Count 100 L Discharge Plan Discharge Plan Discharge Problem: Closed compression fracture of L2 vertebra, Abrasion of skin, Fall Patient Disposition: Home Discharge comment: Patient to wear the TLSO brace at all times when he is up out of bed. He may remove the brace for bathing and when sleeping if he is comfortable with the brace off. No forceful bending or twisting of lumbar spine. No lifting or carrying more than 5-10 lb. Use walker as needed. Needs follow-up appointment at Orthopedic office in [place] in 10-14 days. Discharge Med Rec/Prescriptions Prescriptions: New cyclobenzaprine 10 mg Tablet 10 mg PO Q8HR PRN (Reason: Spasms) Qty: 20 RF: 0 acetaminophen 325 mg Tablet 975 mg PO TID Qty: 30 RF: 0 oxycodone 10 mg Tablet 10 mg PO Q3HR PRN (Reason: Pain, Severe (7-10)) Qty: 40 RF: 0 meloxicam 15 mg tablet 15 mg PO DAILY Qty: 30 RF: 0 Provider Discharge Instructions Diet: Diet as Tolerated Activity: Ambulate as tolerated with TLSO brace in place. use walker as needed. Discharge Data Attending Provider: Faisal Gore Admit Date/Time: 08/23/18 05:39 Quality VTE Deep Vein Thrombosis/Pulmonary Embolism Present on Admission: No
--- NOTE | 2018-08-24 13:02 | PC.NURSE ---
Discharge Pt states he has pain, was given oxy in AM right at change of shift. PT/OT wanted to get pt up for first time and fit brace, provided pt IV Morphine. pt up with PT walking with brace. he wanted to go home. Called PA and notified him, he came in and d/c pt. D/c instructions provided to pt and SO. Aware to make f/u apt with SNO. PIV removed without issue. pt left walking with FWW and brace in place, he declined a w/c. pt took all belongings with him.
--- NOTE | 2018-08-28 09:50 | PC.NURSE ---
Late entry: Lactated Ringers stopped 08/23 1600
== END 2018-08-24 13:00 | disposition home or self-care (01) ==
LOC: ED 03:34 → AC 05:40
PROVIDERS: Admitting Provider Orthopaedic Surgery; Emergency Provider Emergency Medicine; Visit Provider Orthopaedic Surgery
DX: S32.020A Wedge compression fracture of second lumbar vertebra, initial encounter for closed fracture (principal); M54.5 Low back pain; W10.8XXA Fall (on) (from) other stairs and steps, initial encounter; F17.210 Nicotine dependence, cigarettes, uncomplicated; F41.9 Anxiety disorder, unspecified
CPT/HCPCS: 36415; 36591; 72100; 72148; 72170; 74177; 80048; 80320; 85025; 85027; 96361; 96374; 96375; 96376; 97116; 97161; 97165; 97530; 97535; 99283; 99284; 99285; G0378; J1170; J1885; J2060; J2270; Q9967